=== PATIENT | male | born 1940 | race Caucasian/White ===

== ENCOUNTER 2021-01-10 12:07 | Observation (INO) | payer MEDICARE, OTHER ==
[~2021-01-10] VITALS: Ht 177.8 cm; Wt 85.7 kg
[2021-01-10 12:51] LABS: BASOPHILS % (AUTO) 0.2 % (0.0-5.0); EOSINOPHILS % (AUTO) 2.2 % (0.0-8.0); HEMATOCRIT 42.6 % (42-54); LYMPHOCYTES % (AUTO) 23.3 % (21.0-51.0); MEAN CORPUSCULAR HEMOGLOBIN 30.6 pg (27.0-33.0); MEAN CORPUSCULAR HGB CONC 33.3 g/dL (32.0-36.0); MEAN CORPUSCULAR VOLUME 91.8 fL (79-99); MONOCYTES % (AUTO) 6.5 % (3.0-13.0); NEUTROPHILS % (AUTO) 67.3 % (40.0-77.0); PLATELET COUNT (AUTO) 270 K/uL (130-400); RED BLOOD CELL COUNT(AUTO) 4.64 MIL/uL (4.50-6.20); RED CELL DISTRIBUTION WIDTH 14.3 % (11.0-15.5); WHITE BLOOD COUNT (AUTO) 5.5 K/uL (4.8-10.8)
[2021-01-10 13:06] LABS: INR 0.95 (0.85-1.15); PROTHROMBIN TIME 10.4 SEC (9.6-11.6)
[2021-01-10 13:29] LABS: ALBUMIN 3.1 g/dL (3.5-5.0); BILIRUBIN,TOTAL 1.4 mg/dL (0.2-1.0); CREATININE 1.2 mg/dL (0.5-1.5); POTASSIUM 3.7 mmol/L (3.5-5.1); TOTAL PROTEIN, SERUM 7.8 g/dL (6.0-8.3)
[2021-01-10 17:34] LABS: APPEARANCE,URINE Clear (CLEAR); BILIRUBIN,URINE Negative (NEGATIVE); COLOR,URINE Yellow (YELLOW); GLUCOSE, URINE (UA) Negative (NEGATIVE); KETONES,URINE Negative (NEGATIVE); LEUKOCYTE ESTERASE ,URINE Negative (NEGATIVE); NITRATE,URINE Negative (NEGATIVE); OCCULT BLOOD,URINE Negative (NEGATIVE); PROTEIN,URINE Negative (NEGATIVE)
[2021-01-11] VITALS (26 sets, daily range): BP systolic 102–143; BP diastolic 48–77
[2021-01-11] MEDS ORDERED: ACET1TAB25 PO (02:08)
[2021-01-11] MEDS ORDERED: METO-408 PO (02:08)
[2021-01-11] MEDS ORDERED: TAMS-1 PO (02:08)
[2021-01-11] MEDS ORDERED: ATOR40TA69 PO (02:08)
[2021-01-11] MEDS ORDERED: CHOL500045 PO (02:08)
[2021-01-11] MEDS ORDERED: ASPI-1197 PO (02:08)
[2021-01-11] MEDS ORDERED: METF-444 PO (02:08)
[2021-01-11] MEDS ORDERED: VENL-53 PO (02:08)
[2021-01-11] MEDS ORDERED: OXYM30SP27 NS (02:08)
[2021-01-11] MEDS ORDERED: HYDR12.54 PO (02:08)
[2021-01-11] MEDS ORDERED: LEVO100C4 PO (02:08)
[2021-01-11] MEDS ORDERED: PANT40TA54 PO (02:08)
[2021-01-11 05:41] LABS: ALBUMIN 2.8 g/dL (3.5-5.0); CREATININE 1.2 mg/dL (0.5-1.5)
[2021-01-11] MEDS ORDERED: SUCCINYLCHOLINE CHLORIDE 20 MG/ML 10 ML VIAL ONE (08:01)
[2021-01-11] MEDS ORDERED: ONDANSETRON HCL 4 MG/2 ML VIAL ONE (08:01)
[2021-01-11] MEDS ORDERED: PROPOFOL 10 MG/ML 20ML VIAL IV ONE (08:01)
[2021-01-11] MEDS ORDERED: LIDOCAINE PF 2% 5ML ABBOJECT ONE (08:01)
[2021-01-11] MEDS ORDERED: IOHEXOL-350 50ML VIAL IV ONE ×2 (08:11→08:16)
[2021-01-11] MEDS: INDOMETHACIN 50 MG SUPP.RECT RC SCH (08:35)
[2021-01-11] MEDS ORDERED: OXYMETAZOLINE HCL SPRAY 15 ML BOTTLE NS PRN (19:30)
[2021-01-11] MEDS ORDERED: ACETAMINOPHEN-CODEINE 300/30MG TAB PO PRN (20:15)
[2021-01-11] MEDS ORDERED: METO25TA6 PO (20:32)
[2021-01-11] MEDS ORDERED: VENLAFAXINE HCL XR 37.5 MG CAP PO SCH (21:00)
[2021-01-11] MEDS ORDERED: NON-FORMULARY MEDICATION 1 EACH (Metoprolol Succinate 25 MG) PO SCH (21:00)
[2021-01-11] MEDS: METOPROLOL TARTRATE 25 MG TAB PO SCH (21:00)
[2021-01-11] MEDS ORDERED: METOPROLOL SUCCINATE 50 MG TAB.SR.24H PO SCH (21:00)
[2021-01-12] VITALS: BP 99/63
[2021-01-12 04:00] VITALS: BP 122/72
[2021-01-12 06:19] LABS: BASOPHILS % (AUTO) 0.6 % (0.0-5.0); EOSINOPHILS % (AUTO) 2.2 % (0.0-8.0); HEMATOCRIT 41.2 % (42-54); LYMPHOCYTES % (AUTO) 25.7 % (21.0-51.0); MEAN CORPUSCULAR HEMOGLOBIN 29.8 pg (27.0-33.0); MEAN CORPUSCULAR HGB CONC 31.8 g/dL (32.0-36.0); MEAN CORPUSCULAR VOLUME 93.8 fL (79-99); MONOCYTES % (AUTO) 7.9 % (3.0-13.0); NEUTROPHILS % (AUTO) 63.2 % (40.0-77.0); PLATELET COUNT (AUTO) 282 K/uL (130-400); RED BLOOD CELL COUNT(AUTO) 4.39 MIL/uL (4.50-6.20); RED CELL DISTRIBUTION WIDTH 14.1 % (11.0-15.5)
[2021-01-12] MEDS ORDERED: LEVOTHYROXINE 100 MCG TABLET PO SCH (06:30)
[2021-01-12 06:48] LABS: ALBUMIN 2.9 g/dL (3.5-5.0); POTASSIUM 3.9 mmol/L (3.5-5.1); TOTAL PROTEIN, SERUM 7.4 g/dL (6.0-8.3)
[2021-01-12] MEDS ORDERED: NON-FORMULARY MEDICATION 1 EACH (Levothyroxine Sodium (Levothyroxine) 100 MCG) PO SCH (07:30)
[2021-01-12 08:14] LABS: HEPATITIS A ANTIBODY IGM Negative (Negative); HEPATITIS B CORE IGM Negative (Negative); HEPATITIS Bs ANTIGEN SCREEN P Negative (Negative)
[2021-01-12 08:26] VITALS: BP 125/62
[2021-01-12] MEDS ORDERED: HYDROCHLOROTHIAZIDE 25 MG TABLET PO SCH (09:00)
[2021-01-12] MEDS ORDERED: NON-FORMULARY MEDICATION 1 EACH (Hydrochlorothiazide 12.5 MG) PO SCH (09:00)
[2021-01-12] MEDS ORDERED: TAMSULOSIN HCL 0.4 MG CAP.ER.24H PO SCH (09:00)
[2021-01-12] MEDS ORDERED: PANTOPRAZOLE SODIUM 40 MG TABLET.DR PO SCH (09:00)
[2021-01-12] MEDS ORDERED: NON-FORMULARY MEDICATION 1 EACH (Cholecalciferol (Vitamin D3) (Vitamin D3) 125 MCG) PO SCH (09:00)
[2021-01-12] MEDS ORDERED: VENLAFAXINE HCL 37.5 MG PO SCH (09:00)
[2021-01-12] MEDS: METOPROLOL TARTRATE 25 MG TAB PO SCH (09:14)
[2021-01-12] MEDS ORDERED: METRONIDAZOLE 500 MG TABLET PO SCH (09:15)
[2021-01-12] MEDS ORDERED: LEVOFLOXACIN 500 MG TABLET PO SCH (09:15)
[2021-01-12 12:56] VITALS: BP_SYST 108; BP_SYST 126; BP_DIAS 68
[2021-01-12] MEDS ORDERED: LEVO500T89 PO (13:36)
[2021-01-12] MEDS ORDERED: METR500T PO (13:36)
== END 2021-01-12 15:05 | disposition home or self-care (01) ==
LOC: EDH 12:07 → EDHIP 18:53 → 3CH 01-11 00:02
PROVIDERS: ADMIT Internal Medicine; ATTEND Internal Medicine
DX: K80.50 Calculus of bile duct without cholangitis or cholecystitis without obstruction (principal); R74.8 Abnormal levels of other serum enzymes; R17 Unspecified jaundice; K83.8 Other specified diseases of biliary tract; I10 Essential (primary) hypertension; E11.9 Type 2 diabetes mellitus without complications; E78.5 Hyperlipidemia, unspecified; E78.00 Pure hypercholesterolemia, unspecified; Z87.891 Personal history of nicotine dependence; Z90.49 Acquired absence of other specified parts of digestive tract; Z79.82 Long term (current) use of aspirin; Z79.84 Long term (current) use of oral hypoglycemic drugs; Z79.899 Other long term (current) drug therapy
CPT/HCPCS: 36415 ×3; 43262; 74176; 74330; 76705; 80053 ×3; 80074; 81003; 82977; 83516; 83690; 84145; 84484; 85025 ×2; 85610; 85730; 86140; 87040 ×2; 87324; 99285; A4215; A4222; A4223; A4606; A4615; A4657; C1769; G0378 ×42; J0330; J2001; J2405; J2704; J7030; Q9967

== ENCOUNTER 2021-02-12 09:43 | Day surgery (SDC) | payer OTHER ==
[~2021-02-12] VITALS: Ht 177.8 cm; Wt 90.7 kg
[2021-02-12] VITALS (17 sets, daily range): BP systolic 114–147; BP diastolic 57–78
[~2021-02-12 09:43] MED LIST: ACET1TAB25 PO; ASPI-1197 PO; ATOR40TA69 PO; CHOL500045 PO; HYDR12.54 PO; LEVO100C4 PO; LEVO500T89 PO; METF-444 PO; METO25TA6 PO; METR500T PO; OXYM30SP27 NS; PANT40TA54 PO; SODIUM CHLORIDE 0.9% 1000ML 1,000 ML IV ONE; TAMS-1 PO; VENL-53 PO
[2021-02-12] MEDS ORDERED: HYDR25TA PO (11:07)
[2021-02-12] MEDS ORDERED: IOHEXOL-350 50ML VIAL IV ONE (11:15)
[2021-02-12] MEDS ORDERED: INDOMETHACIN 50 MG SUPP.RECT RC SCH (12:15)
[2021-02-12] MEDS ORDERED: SUCCINYLCHOLINE CHLORIDE 20 MG/ML 10 ML VIAL ONE (13:14)
[2021-02-12] MEDS ORDERED: PROPOFOL 10 MG/ML 20ML VIAL IV ONE ×2 (13:14→13:35)
[2021-02-12] MEDS ORDERED: FENTANYL CITRATE PF 50 MCG/1 ML 2ML VIAL ONE (13:15)
[2021-02-12] MEDS ORDERED: MIDAZOLAM HCL 1 MG/ML 2ML VIAL ONE (13:15)
== END 2021-02-12 15:45 | disposition home or self-care (01) ==
LOC: DAH 09:43 → ENDO 09:43
PROVIDERS: ATTEND Internal Medicine
DX: K80.34 Calculus of bile duct with chronic cholangitis without obstruction (principal); R10.10 Upper abdominal pain, unspecified; K83.8 Other specified diseases of biliary tract; Z20.822 Contact with and (suspected) exposure to COVID-19; E66.01 Morbid (severe) obesity due to excess calories; I10 Essential (primary) hypertension; E03.9 Hypothyroidism, unspecified; E78.5 Hyperlipidemia, unspecified; E11.9 Type 2 diabetes mellitus without complications; Z79.84 Long term (current) use of oral hypoglycemic drugs; Z79.890 Hormone replacement therapy; Z79.899 Other long term (current) drug therapy; Z98.890 Other specified postprocedural states; Z90.49 Acquired absence of other specified parts of digestive tract; Z90.5 Acquired absence of kidney; Z68.28 Body mass index [BMI] 28.0-28.9, adult
CPT/HCPCS: 43261; 43273; 74328; 82948 ×2; 87426; 93005; C1769; C1773; J0330; J2250; J2704 ×2; J3010; J7030; Q9967; 74330

== ENCOUNTER → 2022-05-27 | Outpatient (CLI) | payer OTHER ==
[~2022-05-27] MED LIST changes: +ACET-2079 PO; -ACET1TAB25 PO; -CHOL500045 PO; -HYDR12.54 PO; +HYDR25TA PO; -LEVO500T89 PO; -METR500T PO; -OXYM30SP27 NS; -SODIUM CHLORIDE 0.9% 1000ML 1,000 ML IV ONE
== END | disposition home or self-care (01) ==
LOC: RAH 10:49
PROVIDERS: ATTEND Internal Medicine Gastroenterology
DX: R11.2 Nausea with vomiting, unspecified (principal); R68.81 Early satiety
CPT/HCPCS: 78264; A9541